=== PATIENT | male | born 1975 | race Caucasian/White ===

== ENCOUNTER 2016-12-03 19:46 | Emergency (ER) | payer SELFPAY ==
[2016-12-03 20:10] VITALS: BP 137/91
[2016-12-03] MEDS ORDERED: Tetan/Diph/Pertus SYR(Tdap)* 0.5 ML SYR(BOOSTRIX) use SYR IM ONE (21:36)
--- NOTE | 2016-12-05 01:23 | ED ---
Laceration/Wound HPI - HPI Summary HPI Summary: Patient arrives s/p work injury with 2 1cm lacerations to the right index finger sustained with a table wire. 2/10 pain. Patient able to flex and extend fingers without pain or problems. Pulses intact bilaterally. 1cm laceration to palmar right index finger between DIP and PIP, 1cm laceration to dorsal surface between MCP and PIP. Patient without other health complications or injuries. Denies wrist pain. Tetanus >10yo. - History of Current Complaint Stated Complaint: FINGER LAC Time Seen by Provider: 12/03/16 20:26 Hx Obtained From: Patient Mechanism of Injury: Sharp/Blunt Trauma Pain Intensity: 0 Pain Scale Used: 0-10 Numeric Associated Signs & Symptoms: Negative - Allergy/Home Medications Allergies/Adverse Reactions: Allergies Allergy/AdvReac Type Severity Reaction Status Date / Time Erythromycin Allergy Rash And Verified 09/15/15 07:48 Itching PMH/Surg Hx/FS Hx/Imm Hx Previously Healthy: Yes Infectious Disease History: No Infectious Disease History: Denies: Traveled Outside the [place] in Last 30 Days - Social History Occupation: Employed Full-time Lives: With Family Alcohol Use: None Hx Substance Use: No Substance Use Type: Reports: None Hx Tobacco Use: No Smoking Status (MU): Never Smoked Tobacco Review of Systems Constitutional: Negative Cardiovascular: Negative Respiratory: Negative Gastrointestinal: Negative Musculoskeletal: Negative Positive: Other - 1cm laceration to palmar right index finger between DIP and PIP, 1cm laceration to dorsal surface between MCP and PIP. Neurological: Negative Positive: Anxious All Other Systems Reviewed And Are Negative: Yes Physical Exam Triage Information Reviewed: Yes Vital Signs On Initial Exam: Initial Vitals Temp Pulse Resp BP Pulse Ox 99.3 F 92 16 137/91 98 12/03/16 20:07 12/03/16 20:07 12/03/16 20:07 12/03/16 20:07 12/03/16 20:07 Vital Signs Reviewed: Yes Appearance: Positive: Well-Appearing, No Pain Distress, Well-Nourished Skin: Positive: Warm, Skin Color Reflects Adequate Perfusion, Other - 1cm laceration to palmar right index finger between DIP and PIP, 1cm laceration to dorsal surface between MCP and PIP. Eyes: Positive: Normal, EOMI, KALIA Neck: Positive: Supple, Nontender, No Lymphadenopathy Respiratory/Lung Sounds: Positive: Clear to Auscultation, Breath Sounds Present Cardiovascular: Positive: Normal, RRR Musculoskeletal: Positive: Normal, Strength/ROM Intact Neurological: Positive: Normal, Sensory/Motor Intact, Alert, Oriented to Person Place, Time, Speech Normal Psychiatric: Positive: Normal AVPU Assessment: Alert Procedures - Laceration/Wound Repair 1 Location: upper extremity Description: Linear Anesthesia: Local, 1.0%, Lido, Epi Betadine Prep?: No Laceration/Wound Explored: clean, no foreign body removed Closure: Single Layer Suture Type: Nylon Number of Sutures: 4 Layer Closure?: No Sterile Dressing Applied?: No 2 Location: upper extremity Description: Stellate Anesthesia: Local, 2.0%, Epi Betadine Prep?: No Laceration/Wound Explored: clean Closure: Single Layer Suture Type: Nylon Number of Sutures: 4 Layer Closure?: No Sterile Dressing Applied?: No Diagnostics - Vital Signs Vital Signs Temp Pulse Resp BP Pulse Ox 12/03/16 20:07 99.3 F 92 16 137/91 98 - Laboratory Lab Statement: Any lab studies that have been ordered have been reviewed, and results considered in the medical decision making process. Laceration Repair Course/Dx - Course Course Of Treatment: Wound cleaned with irrigation - NS. 4 sutures placed in palmar surface of index right finger. 4 sutures placed in dorsum of index right finger. Lido with epi 1% used for local anastetic. Bandaged with telfa dressing. Follow up 7 days for suture removal. Ibuprofen as needed for pain. Return precautions given. Tetanus updated. - Differential Dx Differental Diagnoses: Cellulitis, Laceration, Tendon Laceration - Clinical Impression Provider Diagnoses: Laceration of right index finger Discharge - Discharge Plan Condition: Stable Disposition: HOME Patient Education Materials: Care For Your Stitches (ED) Forms: *Work Release Referrals: No Primary Care Phys,NOPCP [Primary Care Provider] - Additional Instructions: Tylenol as needed for discomfort. Keep splint on for at least 3 days with bandage. May use neosporin on the wound for comfort. Suture removal in 7 days. Images - Images Hands: 1 - 1cm laceration superficial 2 - 1cm laceration
--- NOTE | 2017-03-04 18:25 | PN ---
Progress Note - Progress Note Note: As stated in the original note, both lacerations were measured at 1cm each.
== END 2016-12-03 22:00 | disposition home or self-care (01) ==
LOC: ED 19:46
DX: S61.210A Laceration without foreign body of right index finger without damage to nail, initial encounter (principal); W45.8XXA Other foreign body or object entering through skin, initial encounter; Y92.9 Unspecified place or not applicable; Z23 Encounter for immunization
CPT/HCPCS: 90471; 90715; 99282